=== PATIENT | female | born 1945 | race African-American/Black ===

== ENCOUNTER 2017-02-10 18:00 | Emergency (ER) | payer OTHER ==
[~2017-02-10 18:00] MED LIST: ACCUNEB INH; ALAVERT10 MG PO; APRES50 PO; ASABAYER PO; ASTELIN NAS; BROVANA15 MCG INH; CAT1 PO; CAT2 PO; COMBIVENT INH; DUONEB INH; FLONASE NAS; GGACUDL PO; GLUCOPHAGE1000 MG PO; GLUCPH PO; GLUCXL2.5 PO; HUMI PO; KLOR-CON M1010 MEQ PO; L20 PO; MAGOX4 PO; MICRO-K10 MEQ PO; MULTIVIT/MIN PO; MULTIVITAMI1 PO; MULTIVITAMIN PO; NORV5 PO; P10 PO; PEP20 PO; PRILO PO; PRIN20 PO; PROAIR HFA INH; PULRESP.5 INH; SPIRIVA INH; T PO; TEKTURNA300 MG PO; TESS PO; VIB100 PO; VITAMIN D31000 UNIT PO; ZAROX2.5B PO; ZOCOR20 PO
== END 2017-02-10 20:35 | disposition home or self-care (01) ==
LOC: ER 18:00
DX: M79.605 Pain in left leg (principal); I10 Essential (primary) hypertension; E11.9 Type 2 diabetes mellitus without complications; Z91.041 Radiographic dye allergy status; Z88.8 Allergy status to other drugs, medicaments and biological substances; Z79.899 Other long term (current) drug therapy; Z79.84 Long term (current) use of oral hypoglycemic drugs
CPT/HCPCS: 93971; 99284